=== PATIENT | female | born 1980 | race Caucasian/White ===

== ENCOUNTER 2016-06-13 09:33 | Emergency (ER) | payer BC ==
[2016-06-13 09:54] VITALS: BP 144/107; PULSE 88; RESP 16; TEMP 98.1; O2SAT 97
--- NOTE | 2016-06-13 09:55 | CPEKG ---
Heart Rate: 75 RR Interval: 800 P-R Interval: 136 QRSD Interval: 90 QT Interval: 412 QTC Interval: 461 P Calvin: 15 QRS Calvin: 30 T Wave Calvin: 25 EKG Severity - NORMAL ECG - EKG Impression: SINUS RHYTHM Electronically Signed By: Bryce Nguyen 15-Jun-2016 09:05:50
--- NOTE | 2016-06-13 10:20 | UCPHY ---
H & P Patient Type: Established Chief Complaint Nursing Narrative: CP x 4-5 days. Left breast and Right Breast pain . Like balloon behind breasts. Back pain in upper back and shoulders like "whiplash". Time Seen by Provider: 06/13/16 09:42 HPI/ROS: CHIEF COMPLAINT: Chest pain History by patient HISTORY OF PRESENT ILLNESS: 35-year-old woman with history of irritable bowel syndrome presents complaining of several days to weeks of feeling in her chest and back like there is a balloon pressing from the inside out as well as sharp shooting pains in her left breast. She says the symptoms are constantly present but are worse when she has meditating which she does to control her IBS symptoms. She said she ran 3 miles yesterday and had the symptoms before, during and after the right. It is not associated with any shortness of breath, though the symptoms are more pleuritic in nature. Patient has chronic nausea which is not worse with these new symptoms. She also has a chronic cough which is not changed with this. She denies any fever but says she has follow-up flashes which are also chronic for her. She denies any leg pain or swelling. She smokes daily marijuana but not cigarettes. She has not had a recent cold. But has chronic allergy symptoms coughing runny nose and cough. She also has chronic numbness and tingling in her extremities for which she has been evaluated by a neurologist and has had a recent negative MRI. She has no 1st degree relatives with heart disease. She has no diabetes or hypertension. REVIEW OF SYSTEMS: As in HPI, and all other systems reviewed and are negative - Personal History LMP (Females 10-55): Unknown Current Tetanus Diphtheria and Acellular Pertussis (TDAP): Unsure - Medical/Surgical History Other PMH: IBSD. PCOS. colon polyp removal - Family History Significant Family History: No pertinent family hx, Heart disease - Social History Smoking Status: Current some day smoker Drug Use: Marijuana - Physical Exam Exam: General Appearance: Alert, comfortable appearing, morbidly obese. Eyes: Pupils equal and round no pallor or injection. ENT, Mouth: Mucous membranes moist. Respiratory: Normal, effort, There are no retractions, lungs are clear to auscultation. No wheezes rales or rhonchi Chest: No tenderness or crepitus Cardiovascular: Regular rate and rhythm. Gastrointestinal: Abdomen is soft and nontender, no masses, bowel sounds normal. Neurological: Awake, alert and oriented x 3, no pronator drift, normal gait, no pronator drift Skin: Warm and dry, no rashes. Musculoskeletal: Neck is supple nontender. Extremities are symmetrical, full range of motion. No edema or tenderness Psychiatric: Patient has normal affect, there is no agitation. Constitutional: Initial Vital Signs Temperature (C) 36.7 C 06/13/16 09:47 Heart Rate 88 06/13/16 09:47 Respiratory Rate 16 06/13/16 09:47 Blood Pressure 144/107 H 06/13/16 09:47 O2 Sat (%) 97 06/13/16 09:47 O2 Delivery Mode Room Air Allergies/Adverse Reactions: No Known Allergies Allergy (Unverified 06/13/16 09:47) Home Medications: Medication Instructions Recorded Calcium 06/13/16 Cannabis 06/13/16 Liver And Gb Supplements. 06/13/16 Multi-Vitamin Daily 06/13/16 Naproxen 375 mg PO BID #0 tablet. 06/13/16 Medical Decision Making - Diagnostics EKG Interpretation: Normal sinus rhythm at a rate in the 60s with normal axis, normal intervals and no ST segment abnormalities and no evidence of pericarditis. Impression: Normal EKG ED Course/Re-evaluation: 34-year-old woman with multiple chronic complaints and usual while syndrome presents with atypical chest pain. EKG is not concerning for ischemia or pericarditis. The patient's symptoms are not consistent with cardiac cause of her chest pain. I suspect this patient has a significant anxiety component. We discussed stopping marijuana as this may be contributing to or worsening many of her symptoms. Symptoms are somewhat pleuritic in nature. She was given reassurance and will give her a trial of NSAIDs and have her follow up with primary care physician as scheduled next week. Departure - Departure Disposition: Home, Routine, Self-Care Clinical Impression: Chest pain, unspecified Condition: Good Instructions: Chest Pain (ED) Additional Instructions: You were seen by Dr. Jessica Baird today. Return for any worsening or new concerns. I recommend you not smoke marijuana. Follow up primary care physician as scheduled. Referrals: Lynn Moser MD [Primary Care Provider] - As per Instructions Prescriptions: Naproxen 375 mg PO BID #0 tablet.[address] Haque PQJADA PQRS Measurement: NA
== END 2016-06-13 10:27 | disposition home or self-care (01) ==
LOC: CED 09:33
DX: R07.9 Chest pain, unspecified (principal); F12.90 Cannabis use, unspecified, uncomplicated
CPT/HCPCS: 93010-PO; 99214-PO; G0463-PO

== ENCOUNTER → 2016-06-15 | Outpatient (CLI) | payer BC | LOC: CIMAGING 10:35 | PROVIDERS: ATTEND Internal Medicine | DX: R07.9 Chest pain, unspecified (principal) | CPT/HCPCS: 71020-PO ==

== ENCOUNTER → 2017-01-10 | Outpatient (CLI) | payer BC | LOC: FIMAGING 08:15 | PROVIDERS: ATTEND Physician Assistant | DX: R19.7 Diarrhea, unspecified (principal) ==